=== PATIENT | male | born 1970 | race Caucasian/White ===

== ENCOUNTER 2016-05-30 07:50 | Day surgery (SDC) | payer BC ==
[2016-05-27 11:51] LABS: HEMATOCRIT 43.4 % (40.0-51.0); HEMOGLOBIN 14.6 g/dL (13.6-17.8)
[2016-05-27 12:03] LABS: CALCIUM, SERUM 8.9 MG/DL (8.5-10.4); CHLORIDE, SERUM 104 MMOL/L (96-112); CO2 (CARBON DIOXIDE) 28 MMOL/L (24-34); CREATININE 1.38 MG/DL (0.70-1.30); GFR AFRICAN AMERICAN 70 ML/MIN (>=60); GFR NON AFRICAN AMERICAN 60 ML/MIN (>=60); GLUCOSE, SERUM 90 MG/DL (60-99); POTASSIUM, SERUM 4.3 MMOL/L (3.5-5.3); SODIUM, SERUM 140 MMOL/L (135-148)
[2016-05-27 12:04] LABS: BUN (BLOOD UREA NITROGEN) 25 MG/DL (6-23)
--- NOTE | ~2016-05-30 | OP ---
Record Of Operation [place] [id number] [place]. [address] NAME: ANGELITA ADAN : 66 STATUS : REG [facility] PAT#: [id number] AGE: 45 ADM/REG DATE : 05/30/16 MR#: [id number] REPORT SERV DATE: 05/30/16 DICTATED BY: ANDREI MALHOTRA DATE: 05/30/16 REPORT STATUS : Draft TRANSCRIBED BY: MODL DATE: 05/30/16 DATE OF PROCEDURE: 05/30/2016 PREOPERATIVE DIAGNOSES: 1. Sinonasal polyposis. 2. Bilateral chronic frontal sinusitis. 3. Bilateral chronic ethmoid sinusitis. 4. Bilateral chronic maxillary sinusitis. 5. Bilateral chronic sphenoid sinusitis. POSTOPERATIVE DIAGNOSES: 1. Sinonasal polyposis. 2. Bilateral chronic frontal sinusitis. 3. Bilateral chronic ethmoid sinusitis. 4. Bilateral chronic maxillary sinusitis. 5. Bilateral chronic sphenoid sinusitis. PROCEDURES: 1. Bilateral endoscopic total ethmoidectomy. 2. Bilateral endoscopic frontal sinusotomy. 3. Bilateral endoscopic maxillary sinus antrostomy with polyp removal. 4. Bilateral endoscopic sphenoidotomy. SURGEON: Andrei Malhotra M.D. ANESTHESIA: General. COMPLICATIONS: None. COUNTS: All counts were correct following the procedure. ESTIMATED BLOOD LOSS: 20 mL. PREOPERATIVE INFORMED CONSENT: We discussed the risks and benefits of the surgery including, but not limited to bleeding, infection, possible CSF leak, possible ocular injury including blindness, possible recurrence of the polyps requiring revision surgery, possible persistent sinus disease despite surgery; and consent is on the chart. PROCEDURE IN DETAIL: The patient was brought to the operating suite, placed on the operative room table in supine position. General endotracheal anesthesia was initiated without incident. The patient's head and neck were cleaned, prepped and draped in the usual sterile fashion. Following this, using a 0-degree endoscope the middle turbinate, inferior turbinate, and uncinate processes were injected proximally with 10 mL of 1% lidocaine with 1:100,000 epinephrine for hemostasis. Following this, we started on the left-hand side of the nose. Using the Acclarent introducer with illuminated fiber optic wire, I was carefully advanced across the nasofrontal duct. Using the transillumination technique, once the wire Record Of [facility] [place] [id number] [facility] [place]. [id number] NAME: ANGELITA ADAN : 66 STATUS : REG [facility] PAT#: [id number] AGE: 45 ADM/REG DATE : 05/30/16 MR#: [id number] REPORT SERV DATE: 05/30/16 DICTATED BY: ANDREI MALHOTRA DATE: 05/30/16 REPORT STATUS : Draft TRANSCRIBED BY: MACIE DATE: 05/30/[address], the balloon was advanced over the wire without difficulty and dilated up to 10 atmosphere along the length of the nasofrontal duct, this was repeated on the right hand in the similar fashion. Then, the uncinate process on the left hand side was taken down using pediatric backbiting forceps, and the Xomed sinus shaver, the natural ostium and the maxillary sinus were then enlarged using the Xomed sinus shaver and straight and backbiting Frank-Cut forceps as well as removing polypoid tissue from this area. The ethmoid bulla was opened widely using the Xomed sinus shaver. There were noted be polypoid changes of the ethmoid sinuses. Then, the basal lamella of the middle turbinate was penetrated using the Xomed sinus shaver working from the posterior to anterior fashion, along the lamina papyracea, the posterior and anterior ethmoid air cells were marsupialized. The middle meatus was then packed with adrenaline soaked pledgets, and the attention was taken on the right side of the nose. With similar fashion as described on the left, the uncinate process was taken down using pediatric backbiting forceps and Xomed sinus shaver. Again, the natural ostium was enlarged using straight and backbiting Frank-Cut forceps. There was noted be an accessory ostium on the right hand side. This was connected with the natural ostium using the straight and backbiting Frank-Cut forceps. The Xomed sinus shaver was again used to enter the ethmoid bulla, which was opened widely, and then the basal lamella of the middle turbinate was again penetrated using the Xomed sinus shaver working from the posterior and anterior fashion along the lamina papyracea, the posterior and anterior ethmoid air cells were marsupialized. There were noted to be again extensive polypoid changes throughout the ethmoid cavity. Attention was taken to the sphenoid. With the Acclarent sphenoid sinus introducer and under direct visualization of the sphenoid ostium, the wire was advanced over the ostium. The balloon was then advanced over the wire across the ostium and dilated up to 10 atmospheres, and this was repeated on the opposite side. The sinus cavities and the nasopharynx were suctioned free of any blood clots. Then, the Propel steroid stents were placed in the nasofrontal duct and the ethmoid cavity bilaterally. The patient was then awakened from anesthesia, and taken to the recovery room in stable condition. MARY/MACIE Andrei Malhotra M.D. / [id number] CC: Skyler Conroy M.D.
[~2016-05-30 07:50] MED LIST: ACIPHEX PO; ALLEGRA180 PO; ASTEPRO0.15 % NAS; BENICAR40 PO; DIOVAN HC2 PO; KAPIDEX60 MG PO; MONODOX100 MG PO; PREDNISONE DOSEPACK; TORATAB PO; ZYRTEC ALLGY10 MG PO
== END 2016-05-30 23:59 | disposition home or self-care (01) ==
LOC: MSC 07:50
PROVIDERS: Otolaryngology
PROC: 099Q4ZZ Drainage of Right Maxillary Sinus, Percutaneous Endoscopic Approach (ICD-10-PCS; 2016-05-30)
PROC: 09TU4ZZ Resection of Right Ethmoid Sinus, Percutaneous Endoscopic Approach (ICD-10-PCS; 2016-05-30)
PROC: 09TV4ZZ Resection of Left Ethmoid Sinus, Percutaneous Endoscopic Approach (ICD-10-PCS; 2016-05-30)
PROC: 09BT4ZZ Excision of Left Frontal Sinus, Percutaneous Endoscopic Approach (ICD-10-PCS; 2016-05-30)
PROC: 09BS4ZZ Excision of Right Frontal Sinus, Percutaneous Endoscopic Approach (ICD-10-PCS; 2016-05-30)
PROC: 09CX4ZZ Extirpation of Matter from Left Sphenoid Sinus, Percutaneous Endoscopic Approach (ICD-10-PCS; 2016-05-30)
PROC: 09CW4ZZ Extirpation of Matter from Right Sphenoid Sinus, Percutaneous Endoscopic Approach (ICD-10-PCS; 2016-05-30)
PROC: 099R4ZZ Drainage of Left Maxillary Sinus, Percutaneous Endoscopic Approach (ICD-10-PCS; principal; 2016-05-30 09:30)
DX: J32.8 Other chronic sinusitis (principal); J33.8 Other polyp of sinus; I10 Essential (primary) hypertension; G47.33 Obstructive sleep apnea (adult) (pediatric); M19.90 Unspecified osteoarthritis, unspecified site; K44.9 Diaphragmatic hernia without obstruction or gangrene; Z90.49 Acquired absence of other specified parts of digestive tract; Z98.890 Other specified postprocedural states; Z88.5 Allergy status to narcotic agent; Z79.899 Other long term (current) drug therapy
CPT/HCPCS: 80048; 85014; 85018; 88305; 93005; A9270-GY; C1726; J0690; J2250; J2405; J2710; J3010